=== PATIENT | male | born 1980 | race Caucasian/White ===

== ENCOUNTER → 2016-05-14 | Outpatient (CLI) | payer OTHER ==
[~2016-05-14] MED LIST: BACTRIM DS 8001 TA1 PO; BACTROBAN OINT0.9 GM PO; CIPRO500 MG PO; FLEXERIL5 MG PO; HYDROCODONE BIT1 T11 PO; IBUPROFEN400 MG PO; LIDEX0.05% T; MOTRIN400 MG PO; MOTRIN800 MG PO; PHENERGAN W/ DE30 ML PO; PREDNICOT10 MG PO; PROAIR HFA0.09 MG/AC INH; ULTRAM50 MG PO
[2016-05-14 12:09] LABS: BASO % 0.5 % (0.0-1.0); EOS # 0.2 10*3/uL (0.0-0.4); HEMATOCRIT 43.4 % (42.0-52.0); HEMOGLOBIN 14.9 g/dl (14.0-18.0); LYMPH # 2.2 10*3/uL (1.3-4.4); LYMPH % 28.5 % (27.0-41.0); MEAN CELL VOLUME 86.1 fl (80.0-94.0); MEAN CORPUSCULAR HGB 29.6 pg (27.0-31.0); MEAN CORPUSCULAR HGB CONC 34.3 g/dl (33.0-37.0); MEAN PLATELET VOLUME 9.7 fl (9.6-12.3); MONO # 0.6 10*3/uL (0.1-1.0); MONO % 7.4 % (3.0-9.0); NEUT # 4.8 10*3/uL (2.3-7.9); NEUT % 61.3 % (47.0-73.0); PLATELET COUNT AUTOMATED 304 10*3/uL (130-400); RED BLOOD COUNT 5.04 10*6/uL (4.50-5.90); RED CELL DISTRI WIDTH 12.8 % (0-14.5); WHITE BLOOD COUNT 7.8 10*3/uL (4.8-10.8)
[2016-05-14 12:27] LABS: ALBUMIN 3.4 gm/dl (3.1-4.5); BILIRUBIN, TOTAL 0.5 mg/dl (0.2-1.0); BUN 14 mg/dl (7-24); CARBON DIOXIDE 27 mmol/L (21-32); CHLORIDE 103 mmol/L (98-107); EST GLOM FILT AFRICAN AMERICAN > 60 ml/min; GLUCOSE 107 mg/dL (65-99); POTASSIUM 4.1 mmol/L (3.5-5.1); SGOT/AST 28 IU/L (3-35); SGPT/ALT 46 U/L (12-78); SODIUM 139 mmol/L (136-145); TOTAL PROTEIN 7.5 gm/dL (6.4-8.2)
[2016-05-14 12:28] LABS: ALKALINE PHOSPHATASE 54 U/L (45-117)
== END | disposition home or self-care (01) ==
LOC: LAB 11:51
PROVIDERS: Nurse Practitioner Family
DX: A41.9 Sepsis, unspecified organism (principal); D72.829 Elevated white blood cell count, unspecified

== ENCOUNTER → 2017-05-08 | Outpatient (CLI) | payer OTHER ==
[~2017-05-08] MED LIST changes: +CHOLESTEROL PO
[2017-05-08 10:00] LABS: BILIRUBIN NEGATIVE (NEGATIVE); BLOOD TRACE-LYSED (NEGATIVE); CLARITY SL CLOUDY (CLEAR); COLOR YELLOW (YELLOW); GLUCOSE NEGATIVE (NEGATIVE); KETONE NEGATIVE (NEGATIVE); LEUKO ESTERASE NEGATIVE (NEGATIVE); NITRITE NEGATIVE (NEGATIVE); UROBILINOGEN 0.2 E.U./dl (0.2-1.0)
[2017-05-08 10:16] LABS: BASO % 0.4 % (0.0-1.0); EOS # 0.2 10*3/uL (0.0-0.4); EOS % 1.9 % (1.0-4.0); HEMATOCRIT 44.5 % (42.0-52.0); HEMOGLOBIN 14.8 g/dl (14.0-18.0); LYMPH # 2.4 10*3/uL (1.3-4.4); LYMPH % 25.7 % (27.0-41.0); MEAN CELL VOLUME 86.6 fl (80.0-94.0); MEAN CORPUSCULAR HGB 28.8 pg (27.0-31.0); MEAN CORPUSCULAR HGB CONC 33.3 g/dl (33.0-37.0); MEAN PLATELET VOLUME 10.1 fl (9.6-12.3); MONO # 0.9 10*3/uL (0.1-1.0); MONO % 9.4 % (3.0-9.0); NEUT # 5.8 10*3/uL (2.3-7.9); NEUT % 62.2 % (47.0-73.0); PLATELET COUNT AUTOMATED 354 10*3/uL (130-400); RED BLOOD COUNT 5.14 10*6/uL (4.50-5.90); RED CELL DISTRI WIDTH 13.1 % (0-14.5); WHITE BLOOD COUNT 9.3 10*3/uL (4.8-10.8)
[2017-05-08 10:31] LABS: BUN 12 mg/dl (7-24); CHLORIDE 103 mmol/L (98-107); CREATININE 1.05 mg/dL (0.70-1.30); SODIUM 139 mmol/L (136-145)
[2017-05-08 10:41] LABS: ACT PARTIAL THROMBO TIME 26.8 SECONDS (20.8-31.5)
[2017-05-08 10:57] LABS: BACTERIA 1+
== END | disposition home or self-care (01) ==
LOC: LAB 08:52
PROVIDERS: Surgery
DX: K42.9 Umbilical hernia without obstruction or gangrene (principal); R79.1 Abnormal coagulation profile

== ENCOUNTER → 2017-05-15 | Day surgery (SDC) | payer OTHER ==
[2017-05-08 09:13] VITALS: BP 135/86
[~2017-05-15] VITALS: Ht 177.8 cm; Wt 122.5 kg
[2017-05-15] VITALS (9 sets, daily range): BP systolic 108–127; BP diastolic 61–82
[~2017-05-15] MED LIST changes: +NORCO 5-325 TA1 EACH PO
--- NOTE | ~2017-05-15 | O ---
[place], [place] OPERATIVE NOTE NAME: RASHI SWAN [facility] #: [id number] UNIT #: [id number] ROOM: DOCTOR: PRANAV COLLINS MD BIRTHDATE: [birth year] DOS: 05/15/2017 PREOPERATIVE DIAGNOSIS: Recurrent umbilical hernia. POSTOPERATIVE DIAGNOSIS: Recurrent umbilical hernia. PROCEDURE: Repair of recurrent umbilical hernia. SURGEON: Pranav Collins MD [employer] SALES: [employer]. ANESTHESIA: General with endotracheal intubation. INDICATIONS: This is a 37-year-old gentleman who had umbilical hernia repair with mesh done approximately a year ago, who came back to the office with another recurrent supraumbilical ventral hernia, who came back with recurrent supraumbilical ventral hernia. It was decided to take the patient to the operating room for the above-mentioned procedure. The procedure and its complications were explained to the patient in detail preoperatively. Complications that were discussed included but were not limited to bleeding, infection, hematoma/seroma/abscess formation, recurrence, prolonged postoperative pain and damage to underlying vital structures. He agreed to proceed. DESCRIPTION OF PROCEDURE: After identifying the patient, the patient was brought to the operating suite and laid in the supine position. After induction of general anesthesia, the parts were then painted and draped in the usual sterile fashion and a time-out procedure was called. An incision was made in a supraumbilical fashion in a curvilinear direction. Skin and the subcutaneous tissue were incised with the help of a knife and was deepened with the help of electrocautery. The hernial sac was identified to be superior to the previous hernia repair. The hernia sac was itself opened and excised in its entirety and sent for histopathological diagnosis. Thereafter, the extent of the hernia was estimated and with the help of a Antony clamp, the edge of the fascial defect was held up. At this point, the edges of the hernial sac were freshened and approximated with the help of looped PDS in a running fashion. Thereafter, the subcutaneous tissue was irrigated and approximated with the help of 3-0 Vicryl in a running fashion. The skin edges were approximated with the help of 4-0 Vicryl in a subcuticular running fashion after the edges were infiltrated with 1% plain lidocaine. A dressing was placed and an abdominal binder was placed over that. The patient was extubated uneventfully and brought back to the recovery room in stable fashion. There were no complications. Dr. Pranav Collins, the attending surgeon, was present throughout the operating case. [place], [place] OPERATIVE NOTE NAME: RASHI SWAN Marcie UNIT #: [id number] ROOM: DOCTOR: PRANAV COLLINS MD BIRTHDATE: [birth year] Pranav Collins MD CM:OPRECORD:OPERATIVE NOTE [id number] PRANAV COLLINS MD 05/15/17908 interface
== END | disposition home or self-care (01) ==
LOC: SDC 05-08 09:30
DX: K42.9 Umbilical hernia without obstruction or gangrene (principal); E78.5 Hyperlipidemia, unspecified; Z68.38 Body mass index [BMI] 38.0-38.9, adult; E66.9 Obesity, unspecified; Z98.890 Other specified postprocedural states; Z80.9 Family history of malignant neoplasm, unspecified

== ENCOUNTER 2017-10-20 18:45 | Emergency (ER) | payer OTHER ==
[~2017-10-20] VITALS: Ht 177.8 cm; Wt 128.8 kg
[2017-10-20] MEDS ORDERED: PREDNISONE10 MG PO (18:49)
== END 2017-10-20 18:53 | disposition home or self-care (01) ==
LOC: ED 18:45
DX: L23.7 Allergic contact dermatitis due to plants, except food (principal); R03.0 Elevated blood-pressure reading, without diagnosis of hypertension; Z88.0 Allergy status to penicillin; Z90.89 Acquired absence of other organs

== ENCOUNTER 2017-12-03 13:58 | Emergency (ER) | payer OTHER ==
[~2017-12-03] VITALS: Ht 177.8 cm; Wt 127.0 kg
[~2017-12-03 13:58] MED LIST changes: +PREDNISONE10 MG PO
[2017-12-03] MEDS ORDERED: ZITHROMAX250 MG PO (14:48)
== END 2017-12-03 15:09 | disposition home or self-care (01) ==
LOC: ED 13:58
DX: J02.9 Acute pharyngitis, unspecified (principal); Z90.89 Acquired absence of other organs; Z79.899 Other long term (current) drug therapy; Z88.0 Allergy status to penicillin; Z98.890 Other specified postprocedural states

== ENCOUNTER 2019-07-17 00:20 | Emergency (ER) | payer OTHER ==
[~2019-07-17] VITALS: Ht 177.8 cm; Wt 136.1 kg
[~2019-07-17 00:20] MED LIST changes: +ZITHROMAX250 MG PO
[2019-07-17] MEDS ORDERED: PROAIR HFA8.5 GM INH (01:36)
[2019-07-17] MEDS ORDERED: PREDNISONE20 M1 PO (01:36)
== END 2019-07-17 02:24 | disposition home or self-care (01) ==
LOC: ED 00:20
DX: J10.1 Influenza due to other identified influenza virus with other respiratory manifestations (principal); J21.9 Acute bronchiolitis, unspecified; E78.00 Pure hypercholesterolemia, unspecified; Z88.0 Allergy status to penicillin; Z79.2 Long term (current) use of antibiotics; Z79.899 Other long term (current) drug therapy

== ENCOUNTER 2019-12-12 20:15 | Emergency (ER) | payer OTHER ==
[~2019-12-12] VITALS: Ht 177.8 cm; Wt 133.8 kg
[~2019-12-12 20:15] MED LIST changes: +PREDNISONE20 M1 PO; +PROAIR HFA8.5 GM INH
== END 2019-12-12 22:35 | disposition home or self-care (01) ==
LOC: ED 20:15
DX: S99.911A Unspecified injury of right ankle, initial encounter (principal); Z79.899 Other long term (current) drug therapy; X58.XXXA Exposure to other specified factors, initial encounter; Y93.89 Activity, other specified; Y92.89 Other specified places as the place of occurrence of the external cause; Y99.0 Civilian activity done for income or pay

== ENCOUNTER 2021-01-05 22:03 | Emergency (ER) | payer OTHER | END 2021-01-05 23:14 | disposition home or self-care (01) | LOC: ED 22:03 | DX: T15.02XA Foreign body in cornea, left eye, initial encounter (principal); Z88.0 Allergy status to penicillin; W45.8XXA Other foreign body or object entering through skin, initial encounter; Y93.89 Activity, other specified; Y92.89 Other specified places as the place of occurrence of the external cause; Y99.8 Other external cause status ==

== ENCOUNTER 2021-01-07 11:19 | Emergency (ER) | payer OTHER ==
[~2021-01-07] VITALS: Wt 140.6 kg
[2021-01-07] MEDS ORDERED: PREDNISONE20 M1 PO (13:41)
== END 2021-01-07 13:50 | disposition home or self-care (01) ==
LOC: ED 11:19
DX: T63.441A Toxic effect of venom of bees, accidental (unintentional), initial encounter (principal); R42 Dizziness and giddiness; R11.0 Nausea; Z88.0 Allergy status to penicillin; Z79.2 Long term (current) use of antibiotics; Z79.899 Other long term (current) drug therapy; Z90.89 Acquired absence of other organs; Y92.89 Other specified places as the place of occurrence of the external cause

== ENCOUNTER 2022-12-23 16:01 | Emergency (ER) | payer OTHER ==
[~2022-12-23] VITALS: Ht 177.8 cm; Wt 136.1 kg
[2022-12-23] MEDS ORDERED: CLEOCIN HCL150 MG PO (17:15)
== END 2022-12-23 17:25 | disposition home or self-care (01) ==
LOC: ED 16:01
DX: K04.7 Periapical abscess without sinus (principal); E78.00 Pure hypercholesterolemia, unspecified; Z88.0 Allergy status to penicillin; Z90.89 Acquired absence of other organs; Z98.890 Other specified postprocedural states

== ENCOUNTER 2023-11-12 18:44 | Emergency (ER) | payer OTHER ==
[~2023-11-12] VITALS: Ht 177.8 cm; Wt 145.1 kg
[~2023-11-12 18:44] MED LIST changes: +CLEOCIN HCL150 MG PO
== END 2023-11-12 20:07 | disposition home or self-care (01) ==
LOC: ED 18:44
DX: S30.811A Abrasion of abdominal wall, initial encounter (principal); E66.9 Obesity, unspecified; Z88.0 Allergy status to penicillin; Z79.2 Long term (current) use of antibiotics; Z90.89 Acquired absence of other organs; Z68.30 Body mass index [BMI] 30.0-30.9, adult; W22.09XA Striking against other stationary object, initial encounter; Y93.89 Activity, other specified; Y92.89 Other specified places as the place of occurrence of the external cause; Y99.8 Other external cause status

== ENCOUNTER 2024-03-04 18:10 | Emergency (ER) | payer OTHER ==
[~2024-03-04] VITALS: Wt 143.3 kg
[2024-03-04] MEDS ORDERED: LISINOPRIL10 M1 PO (18:47)
[2024-03-04] MEDS ORDERED: ROSUVASTATIN CA10 MG PO (18:47)
[2024-03-04] MEDS ORDERED: METFORMIN XR500 MG PO (18:47)
[2024-03-04] MEDS ORDERED: NAPROSYN500 MG PO (20:04)
[2024-03-04] MEDS ORDERED: Ketorolac Tromethamine 60 MG/2 ML VIAL IM ONE (20:05)
== END 2024-03-04 20:07 | disposition home or self-care (01) ==
LOC: ED 18:10
DX: S93.401A Sprain of unspecified ligament of right ankle, initial encounter (principal); E78.00 Pure hypercholesterolemia, unspecified; Z88.0 Allergy status to penicillin; Z90.89 Acquired absence of other organs; Z98.890 Other specified postprocedural states; X58.XXXA Exposure to other specified factors, initial encounter; Y93.9 Activity, unspecified; Y92.009 Unspecified place in unspecified non-institutional (private) residence as the place of occurrence of the external cause; Y99.8 Other external cause status

== ENCOUNTER 2024-12-22 18:57 | Emergency (ER) | payer OTHER ==
[~2024-12-22] VITALS: Ht 177.8 cm; Wt 141.5 kg
[~2024-12-22 18:57] MED LIST changes: +LISINOPRIL10 M1 PO; +METFORMIN XR500 MG PO; +NAPROSYN500 MG PO; +ROSUVASTATIN CA10 MG PO
[2024-12-22] MEDS ORDERED: Lidocaine Hydrochloride 2% 10 ML AMP SC ONE (19:35)
== END 2024-12-22 20:46 | disposition home or self-care (01) ==
LOC: ED 18:57
DX: S61.211A Laceration without foreign body of left index finger without damage to nail, initial encounter (principal); Z88.0 Allergy status to penicillin; Z79.899 Other long term (current) drug therapy; Z79.84 Long term (current) use of oral hypoglycemic drugs; Z90.89 Acquired absence of other organs; W26.0XXA Contact with knife, initial encounter; Y93.89 Activity, other specified; Y92.89 Other specified places as the place of occurrence of the external cause; Y99.8 Other external cause status